=== PATIENT | male | born 1950 | race Caucasian/White ===

== ENCOUNTER 2017-07-28 14:30 | Inpatient (IN) | payer MEDICARE, BC ==
[~2017-07-28] VITALS: Ht 172.7 cm; Wt 81.6 kg
[2017-07-28 16:00] VITALS: BP 104/73
[2017-07-28] MEDS ORDERED: ONDANSETRON HCL 4MG/2ML VIAL IV PRN (16:15)
[2017-07-28] MEDS ORDERED: CLONIDINE 0.1MG TABLET PO PRN (16:15)
[2017-07-28 18:05] VITALS: BP 104/73
[2017-07-28] MEDS ORDERED: BUPR300T54 PO (19:04)
[2017-07-28] MEDS ORDERED: DOCU-150 PO (19:04)
[2017-07-28] MEDS ORDERED: PRAV80TA21 PO (19:04)
[2017-07-28] MEDS ORDERED: LISINOPRIL PO (19:04)
[2017-07-28] MEDS ORDERED: SERT-112 PO (19:04)
[2017-07-28] MEDS ORDERED: HYDR25TA PO (19:04)
[2017-07-28] MEDS ORDERED: MEMA10TA2 PO (19:04)
[2017-07-28] MEDS ORDERED: NON FORMULARY PATIENT HOME MED EA XX SCH ×4 (19:15→20:15)
[2017-07-28 20:00] VITALS: BP 120/80
[2017-07-28] MEDS ORDERED: ATORVASTATIN CALCIUM 10MG TABLET PO SCH (21:00)
[2017-07-28] MEDS: MEMANTINE HCL 10MG TABLET PO SCH (22:41)
[2017-07-28] MEDS: ATORVASTATIN CALCIUM 20MG TABLET PO SCH (22:41)
[2017-07-28] MEDS: SULFAMETHOXAZOLE/TRIMETHOPRIM 800/160MG TABLET PO SCH (22:41)
[2017-07-28] MEDS: SERTRALINE HCL 100MG TABLET PO SCH (22:41)
[2017-07-28] MEDS: ACETAMINOPHEN 325MG TABLET PO PRN (22:42)
[2017-07-29 08:00] VITALS: BP 134/89
[2017-07-29] MEDS: HYDROCHLOROTHIAZIDE 25MG TABLET PO SCH (09:39)
[2017-07-29] MEDS: SULFAMETHOXAZOLE/TRIMETHOPRIM 800/160MG TABLET PO SCH ×2 (09:39→22:54)
[2017-07-29] MEDS: SERTRALINE HCL 100MG TABLET PO SCH ×2 (09:39→18:28)
[2017-07-29] MEDS: DOCUSATE SODIUM 100MG CAPSULE PO SCH (09:39)
[2017-07-29] MEDS: MEMANTINE HCL 10MG TABLET PO SCH ×2 (09:39→22:54)
[2017-07-29] MEDS: LISINOPRIL 10MG TABLET PO SCH (09:40)
[2017-07-29 09:49] LABS: BASOPHILS % 0.6 % (0.0-2.0); EOSINOPHILS % 1.7 % (0.0-5.0); HEMATOCRIT. 53.4 % (42.0-52.0); HEMOGLOBIN. 17.3 g/dL (14.0-18.0); LYMPHOCYTES % 14.8 % (20.0-50.0); MEAN CORPUSCULAR HEMOGLOBIN 28.6 pg (28.0-32.0); MEAN CORPUSCULAR VOLUME 88.2 fL (80.0-94.0); MEAN PLATELET VOLUME 9.3 fl (7.4-10.4); MONOCYTES % 7.2 % (2.0-8.0); NEUTROPHILS % 75.7 % (40.0-76.0); PLATELET 148 x1000/uL (130-400); RED BLOOD CELL COUNT 6.06 mill/uL (4.7-6.1); RED CELL DISTRIBUTION WIDTH 17.1 % (11.6-14.6)
[2017-07-29 09:55] LABS: CARBON DIOXIDE 34 mEq/L (21-32); CHLORIDE 101 mEq/L (98-107)
[2017-07-29] MEDS: BUPROPION HCL 150MG TABLET XL 24HR PO SCH (11:49)
[2017-07-29] MEDS: ACETAMINOPHEN 325MG TABLET PO PRN (14:32)
[2017-07-29] MEDS ORDERED: POTASSIUM CHLORIDE 20MEQ TABLET SR PO NR (17:20)
[2017-07-29] MEDS: ATORVASTATIN CALCIUM 20MG TABLET PO SCH (22:53)
[2017-07-29] MEDS: POLYETHYLENE GLYCOL 3350 (17GM) 1 DOSE PACK PO SCH (22:53)
[2017-07-30 08:00] VITALS: BP 133/94
[2017-07-30 08:15] LABS: BASOPHILS % 0.4 % (0.0-2.0); EOSINOPHILS % 2.2 % (0.0-5.0); HEMATOCRIT. 52.7 % (42.0-52.0); HEMOGLOBIN. 17.3 g/dL (14.0-18.0); LYMPHOCYTES % 12.6 % (20.0-50.0); MEAN CORPUSCULAR HEMOGLOBIN 28.7 pg (28.0-32.0); MEAN CORPUSCULAR VOLUME 87.6 fL (80.0-94.0); MEAN PLATELET VOLUME 9.1 fl (7.4-10.4); MONOCYTES % 7.6 % (2.0-8.0); NEUTROPHILS % 77.2 % (40.0-76.0); PLATELET 146 x1000/uL (130-400); RED BLOOD CELL COUNT 6.01 mill/uL (4.7-6.1); RED CELL DISTRIBUTION WIDTH 17.1 % (11.6-14.6)
[2017-07-30 08:53] LABS: CARBON DIOXIDE 32 mEq/L (21-32); CHLORIDE 102 mEq/L (98-107); HDL CHOLESTEROL 39 mg/dL (40-59); LDL CHOLESTEROL 101 mg/dL (5-100); PHOSPHORUS 3.1 mg/dL (2.5-4.9); TOTAL IRON BINDING CAPACITY 298 ug/dL (250-450)
[2017-07-30 08:56] LABS: PROSTRATE SPECIFIC AG TOTAL 0.19 ng/mL (0.0-4.0)
[2017-07-30] MEDS: DOCUSATE SODIUM 100MG CAPSULE PO SCH ×2 (08:59→18:01)
[2017-07-30] MEDS: SERTRALINE HCL 100MG TABLET PO SCH ×2 (09:01→18:01)
[2017-07-30] MEDS: LISINOPRIL 10MG TABLET PO SCH (09:01)
[2017-07-30] MEDS: SULFAMETHOXAZOLE/TRIMETHOPRIM 800/160MG TABLET PO SCH ×2 (09:02→21:25)
[2017-07-30] MEDS: MEMANTINE HCL 10MG TABLET PO SCH ×2 (09:02→21:25)
[2017-07-30] MEDS: HYDROCHLOROTHIAZIDE 25MG TABLET PO SCH (09:02)
[2017-07-30] MEDS: BUPROPION HCL 150MG TABLET XL 24HR PO SCH (09:03)
[2017-07-30 10:02] LABS: FOLIC ACID (FOLATE) SERUM 6.5 ng/mL (>5.38)
[2017-07-30] MEDS: ENOXAPARIN 40MG/0.4ML SYR SUBCUT SCH (11:44)
[2017-07-30] MEDS ORDERED: NA PHOS,M-B/NA PHOS,DI-BA ENEMA 118ML PR NR (16:45)
[2017-07-30] MEDS ORDERED: NA PHOS,M-B/NA PHOS,DI-BA ENEMA 118ML PR PRN (18:00)
[2017-07-30] MEDS: LACTULOSE 20G/30ML UDC PO SCH ×2 (18:01→21:00)
[2017-07-30 20:00] VITALS: BP 110/75
[2017-07-30] MEDS ORDERED: POLYETHYLENE GLYCOL 3350 (17GM) 1 DOSE PACK PO SCH (21:00)
[2017-07-30] MEDS: POLYETHYLENE GLYCOL 3350 (17GM) 1 DOSE PACK PO SCH (21:00)
[2017-07-30] MEDS: ATORVASTATIN CALCIUM 20MG TABLET PO SCH (21:25)
[2017-07-30] MEDS: ACETAMINOPHEN 325MG TABLET PO PRN (21:25)
[2017-07-31] MEDS: LACTULOSE 20G/30ML UDC PO SCH ×4 (01:00→12:13)
[2017-07-31 08:00] VITALS: BP 121/82
[2017-07-31] MEDS: SERTRALINE HCL 100MG TABLET PO SCH ×2 (08:37→16:46)
[2017-07-31] MEDS: LISINOPRIL 10MG TABLET PO SCH (08:37)
[2017-07-31] MEDS: BUPROPION HCL 150MG TABLET XL 24HR PO SCH (08:37)
[2017-07-31] MEDS: CYANOCOBALAMIN 1000MCG TABLET PO SCH (08:38)
[2017-07-31] MEDS: DOCUSATE SODIUM 100MG CAPSULE PO SCH ×3 (08:38→16:46)
[2017-07-31] MEDS: HYDROCHLOROTHIAZIDE 25MG TABLET PO SCH (08:38)
[2017-07-31] MEDS: SULFAMETHOXAZOLE/TRIMETHOPRIM 800/160MG TABLET PO SCH ×2 (08:38→20:59)
[2017-07-31] MEDS: MEMANTINE HCL 10MG TABLET PO SCH ×2 (08:38→20:59)
[2017-07-31] MEDS ORDERED: BISACODYL 10MG SUPP PR NR (12:00)
[2017-07-31] MEDS: ENOXAPARIN 40MG/0.4ML SYR SUBCUT SCH (12:14)
[2017-07-31] MEDS ORDERED: DOCUSATE SODIUM 100MG CAPSULE PO SCH (17:00)
[2017-07-31] MEDS: POLYETHYLENE GLYCOL 3350 (17GM) 1 DOSE PACK PO SCH (20:59)
[2017-07-31] MEDS: ATORVASTATIN CALCIUM 20MG TABLET PO SCH (20:59)
[2017-07-31 21:06] VITALS: BP 112/82
[2017-08-01] MEDS: ACETAMINOPHEN 325MG TABLET PO PRN (03:20)
[2017-08-01 08:00] VITALS: BP 123/82
[2017-08-01] MEDS: SULFAMETHOXAZOLE/TRIMETHOPRIM 800/160MG TABLET PO SCH ×2 (08:55→21:25)
[2017-08-01] MEDS: DOCUSATE SODIUM 100MG CAPSULE PO SCH ×2 (08:55→16:16)
[2017-08-01] MEDS: HYDROCHLOROTHIAZIDE 25MG TABLET PO SCH (08:55)
[2017-08-01] MEDS: SERTRALINE HCL 100MG TABLET PO SCH ×2 (08:55→16:16)
[2017-08-01] MEDS: BUPROPION HCL 150MG TABLET XL 24HR PO SCH (08:56)
[2017-08-01] MEDS: MEMANTINE HCL 10MG TABLET PO SCH ×2 (08:56→21:25)
[2017-08-01] MEDS: CYANOCOBALAMIN 1000MCG TABLET PO SCH (08:56)
[2017-08-01] MEDS: LISINOPRIL 10MG TABLET PO SCH (08:56)
[2017-08-01] MEDS ORDERED: ONDANSETRON HCL 4MG TABLET PO PRN (09:45)
[2017-08-01] MEDS: ENOXAPARIN 40MG/0.4ML SYR SUBCUT SCH (13:22)
[2017-08-01 13:46] LABS: CREATINE KINASE 142 IU/L (39-308); CREATINE KINASE MB FRACTION 3.9 ng/mL (0.5-3.6); TROPONIN I < 0.02 ng/mL (0.00-0.04)
[2017-08-01 20:00] VITALS: BP 112/70
[2017-08-01] MEDS: ATORVASTATIN CALCIUM 20MG TABLET PO SCH (21:25)
[2017-08-01] MEDS: POLYETHYLENE GLYCOL 3350 (17GM) 1 DOSE PACK PO SCH (21:29)
[2017-08-02 08:00] VITALS: BP 111/84
[2017-08-02] MEDS: DOCUSATE SODIUM 100MG CAPSULE PO SCH ×2 (08:59→16:30)
[2017-08-02] MEDS: SERTRALINE HCL 100MG TABLET PO SCH ×2 (09:01→16:30)
[2017-08-02] MEDS: HYDROCHLOROTHIAZIDE 25MG TABLET PO SCH (09:01)
[2017-08-02] MEDS: BUPROPION HCL 150MG TABLET XL 24HR PO SCH (09:01)
[2017-08-02] MEDS: MEMANTINE HCL 10MG TABLET PO SCH ×2 (09:01→23:15)
[2017-08-02] MEDS: SULFAMETHOXAZOLE/TRIMETHOPRIM 800/160MG TABLET PO SCH ×2 (09:01→23:15)
[2017-08-02] MEDS: LISINOPRIL 10MG TABLET PO SCH (09:02)
[2017-08-02] MEDS: CYANOCOBALAMIN 1000MCG TABLET PO SCH (09:02)
[2017-08-02 09:32] LABS: BASOPHILS % 0.5 % (0.0-2.0); EOSINOPHILS % 2.5 % (0.0-5.0); HEMATOCRIT. 53.8 % (42.0-52.0); HEMOGLOBIN. 17.5 g/dL (14.0-18.0); LYMPHOCYTES % 12.4 % (20.0-50.0); MEAN CORPUSCULAR HEMOGLOBIN 28.6 pg (28.0-32.0); MEAN CORPUSCULAR VOLUME 88.2 fL (80.0-94.0); MEAN PLATELET VOLUME 9.1 fl (7.4-10.4); MONOCYTES % 7.3 % (2.0-8.0); NEUTROPHILS % 77.3 % (40.0-76.0); PLATELET 167 x1000/uL (130-400); RED CELL DISTRIBUTION WIDTH 17.3 % (11.6-14.6)
[2017-08-02 10:04] LABS: CARBON DIOXIDE 27 mEq/L (21-32); CHLORIDE 102 mEq/L (98-107)
[2017-08-02] MEDS: ENOXAPARIN 40MG/0.4ML SYR SUBCUT SCH (12:00)
[2017-08-02] MEDS ORDERED: GUAIFENESIN/CODEINE 200-20MG/10ML UDC PO NR (13:00)
[2017-08-02 13:12] LABS: 25-HYDROXY VITAMIN D3 15 ng/mL (.)
[2017-08-02] MEDS: ERGOCALCIFEROL 50000UNITS CAPSULE PO SCH (16:30)
[2017-08-02] MEDS ORDERED: NA PHOS,M-B/NA PHOS,DI-BA ENEMA 118ML PR NR ×2 (16:30→22:00)
[2017-08-02] MEDS: LACTULOSE 20G/30ML UDC PO SCH ×2 (16:30→23:15)
[2017-08-02] MEDS ORDERED: IPRATROPIUM/ALBUTEROL 0.5-3(2.5)MG/3ML NEB HHN PRN (17:00)
[2017-08-02 17:17] LABS: CLARITY URINE CLEAR (CLEAR); COLOR URINE YELLOW (YELLOW); KETONES URINE NEGATIVE (NEGATIVE); LEUKOCYTE ESTERASE URINE NEGATIVE (NEGATIVE); NITRITE URINE NEGATIVE (NEGATIVE); OCCULT BLOOD URINE TRACE (NEGATIVE); PROTEIN URINE NEGATIVE (NEGATIVE); SPECIFIC GRAVITY URINE 1.018 (1.005-1.030); UROBILINOGEN URINE 0.2 E.U./dL (0.2-1.0)
[2017-08-02 20:00] VITALS: BP 140/90
[2017-08-02] MEDS: BUDESONIDE 0.5MG/2ML NEB HHN SCH (21:40)
[2017-08-02] MEDS: IPRATROPIUM/ALBUTEROL 0.5-3(2.5)MG/3ML NEB HHN SCH (21:40)
[2017-08-02] MEDS: POLYETHYLENE GLYCOL 3350 (17GM) 1 DOSE PACK PO SCH (23:15)
[2017-08-02] MEDS: ATORVASTATIN CALCIUM 20MG TABLET PO SCH (23:15)
[2017-08-02 23:57] LABS: C REACTIVE PROTEIN QUANT 8.5 mg/L (0.0-3.0)
[2017-08-03] MEDS: IPRATROPIUM/ALBUTEROL 0.5-3(2.5)MG/3ML NEB HHN SCH ×4 (02:05→20:05)
[2017-08-03] MEDS: BUDESONIDE 0.5MG/2ML NEB HHN SCH ×2 (07:54→20:06)
[2017-08-03 08:42] VITALS: BP 116/85
[2017-08-03] MEDS: AMLODIPINE 2.5MG TABLET PO SCH (08:53)
[2017-08-03] MEDS: MEMANTINE HCL 10MG TABLET PO SCH ×2 (08:54→20:44)
[2017-08-03] MEDS: CYANOCOBALAMIN 1000MCG TABLET PO SCH (08:54)
[2017-08-03] MEDS: HYDROCHLOROTHIAZIDE 25MG TABLET PO SCH (08:54)
[2017-08-03] MEDS: SULFAMETHOXAZOLE/TRIMETHOPRIM 800/160MG TABLET PO SCH (08:54)
[2017-08-03] MEDS: SERTRALINE HCL 100MG TABLET PO SCH ×2 (08:54→16:56)
[2017-08-03] MEDS: DOCUSATE SODIUM 100MG CAPSULE PO SCH ×2 (08:55→16:56)
[2017-08-03] MEDS: BUPROPION HCL 150MG TABLET XL 24HR PO SCH (08:55)
[2017-08-03] MEDS: LACTULOSE 20G/30ML UDC PO SCH (08:55)
[2017-08-03] MEDS: ENOXAPARIN 40MG/0.4ML SYR SUBCUT SCH (12:06)
[2017-08-03] MEDS ORDERED: SODIUM CHLORIDE 10% FOR INH 15ML VIAL NEB INH SCH (12:15)
[2017-08-03] MEDS ORDERED: LEVOFLOXACIN 500MG TABLET PO SCH (13:00)
[2017-08-03] MEDS ORDERED: ACETYLCYSTEINE 100MG/ML 10% VIAL 4ML INH SCH (13:30)
[2017-08-03] MEDS ORDERED: ACETYLCYSTEINE 200MG/ML 20% VIAL 4ML PO SCH (18:00)
[2017-08-03 20:00] VITALS: BP 127/80
[2017-08-03] MEDS: ACETYLCYSTEINE 200MG/ML 20% VIAL 4ML INH SCH (20:14)
[2017-08-03] MEDS: POLYETHYLENE GLYCOL 3350 (17GM) 1 DOSE PACK PO SCH (20:44)
[2017-08-03] MEDS: ATORVASTATIN CALCIUM 20MG TABLET PO SCH (20:44)
[2017-08-04] MEDS: ACETYLCYSTEINE 200MG/ML 20% VIAL 4ML INH SCH ×3 (02:10→21:05)
[2017-08-04] MEDS: IPRATROPIUM/ALBUTEROL 0.5-3(2.5)MG/3ML NEB HHN SCH ×4 (02:10→21:05)
[2017-08-04] MEDS: ACETAMINOPHEN 325MG TABLET PO PRN ×2 (03:03→20:39)
[2017-08-04 07:28] LABS: BASOPHILS % 0.4 % (0.0-2.0); EOSINOPHILS % 1.5 % (0.0-5.0); HEMATOCRIT. 52.3 % (42.0-52.0); HEMOGLOBIN. 17.5 g/dL (14.0-18.0); LYMPHOCYTES % 12.4 % (20.0-50.0); MEAN CORPUSCULAR HEMOGLOBIN 29.5 pg (28.0-32.0); MEAN CORPUSCULAR VOLUME 87.9 fL (80.0-94.0); MEAN PLATELET VOLUME 9.3 fl (7.4-10.4); MONOCYTES % 10.1 % (2.0-8.0); NEUTROPHILS % 75.6 % (40.0-76.0); PLATELET 163 x1000/uL (130-400); RED BLOOD CELL COUNT 5.95 mill/uL (4.7-6.1)
[2017-08-04 07:58] LABS: CARBON DIOXIDE 28 mEq/L (21-32); CHLORIDE 99 mEq/L (98-107)
[2017-08-04 08:00] VITALS: BP 132/88
[2017-08-04] MEDS: DOCUSATE SODIUM 100MG CAPSULE PO SCH ×2 (08:57→17:18)
[2017-08-04] MEDS: HYDROCHLOROTHIAZIDE 25MG TABLET PO SCH (08:57)
[2017-08-04] MEDS: SERTRALINE HCL 100MG TABLET PO SCH ×2 (08:57→17:18)
[2017-08-04] MEDS: AMLODIPINE 2.5MG TABLET PO SCH (08:57)
[2017-08-04] MEDS: MEMANTINE HCL 10MG TABLET PO SCH ×2 (08:57→20:39)
[2017-08-04] MEDS: CYANOCOBALAMIN 1000MCG TABLET PO SCH (08:57)
[2017-08-04] MEDS: BUPROPION HCL 150MG TABLET XL 24HR PO SCH (08:57)
[2017-08-04] MEDS: ENOXAPARIN 40MG/0.4ML SYR SUBCUT SCH (12:12)
[2017-08-04 17:12] LABS: ANTI-NUCLEAR ANTIBODIES DIRECT Negative (Negative)
[2017-08-04 20:00] VITALS: BP 120/85
[2017-08-04] MEDS: POLYETHYLENE GLYCOL 3350 (17GM) 1 DOSE PACK PO SCH (20:39)
[2017-08-04] MEDS: ATORVASTATIN CALCIUM 20MG TABLET PO SCH (20:39)
[2017-08-04] MEDS: BUDESONIDE 0.5MG/2ML NEB HHN SCH (21:05)
[2017-08-05] MEDS: ACETAMINOPHEN 325MG TABLET PO PRN (03:03)
[2017-08-05] MEDS: IPRATROPIUM/ALBUTEROL 0.5-3(2.5)MG/3ML NEB HHN SCH ×4 (03:56→21:24)
[2017-08-05] MEDS: BUDESONIDE 0.5MG/2ML NEB HHN SCH ×3 (07:27→21:40)
[2017-08-05] MEDS: ACETYLCYSTEINE 200MG/ML 20% VIAL 4ML INH SCH ×3 (07:29→21:29)
[2017-08-05 08:00] VITALS: BP 137/94
[2017-08-05] MEDS: LEVOFLOXACIN 250MG TABLET PO SCH (08:18)
[2017-08-05] MEDS: BUPROPION HCL 150MG TABLET XL 24HR PO SCH (08:18)
[2017-08-05] MEDS: CYANOCOBALAMIN 1000MCG TABLET PO SCH (08:18)
[2017-08-05] MEDS: SERTRALINE HCL 100MG TABLET PO SCH ×2 (08:18→16:16)
[2017-08-05] MEDS: AMLODIPINE 2.5MG TABLET PO SCH (08:19)
[2017-08-05] MEDS: HYDROCHLOROTHIAZIDE 25MG TABLET PO SCH (08:19)
[2017-08-05] MEDS: MEMANTINE HCL 10MG TABLET PO SCH ×2 (08:19→21:20)
[2017-08-05] MEDS: DOCUSATE SODIUM 100MG CAPSULE PO SCH ×2 (08:19→16:16)
[2017-08-05] MEDS: GUAIFENESIN 600MG ER TABLET PO SCH ×2 (11:32→21:20)
[2017-08-05] MEDS: ENOXAPARIN 40MG/0.4ML SYR SUBCUT SCH (11:32)
[2017-08-05 13:12] LABS: ANGIOTENSION CONVERTING ENZYME < 15 U/L (14-82); ANTI-MYELOPEROXIDASE AB < 9.0 U/mL (0.0-9.0); ANTI-PROTEINASE 3 ABS < 3.5 U/mL (0.0-3.5)
[2017-08-05 14:23] LABS: ATYPICAL P-ANCA <1:20 titer (Neg:<1:20); CYTOPLASMIC C-ANCA <1:20 titer (Neg:<1:20); PERINUCLEAR P-ANCA <1:20 titer (Neg:<1:20)
[2017-08-05 20:00] VITALS: BP 105/73
[2017-08-05] MEDS: POLYETHYLENE GLYCOL 3350 (17GM) 1 DOSE PACK PO SCH (21:00)
[2017-08-05] MEDS: ATORVASTATIN CALCIUM 20MG TABLET PO SCH (21:20)
[2017-08-06] MEDS: ACETYLCYSTEINE 200MG/ML 20% VIAL 4ML INH SCH ×4 (02:40→21:31)
[2017-08-06] MEDS: IPRATROPIUM/ALBUTEROL 0.5-3(2.5)MG/3ML NEB HHN SCH ×4 (02:42→21:31)
[2017-08-06] MEDS: BUDESONIDE 0.5MG/2ML NEB HHN SCH ×2 (07:17→21:31)
[2017-08-06 08:00] VITALS: BP 132/91
[2017-08-06] MEDS: DOCUSATE SODIUM 100MG CAPSULE PO SCH ×2 (08:47→17:50)
[2017-08-06] MEDS: SERTRALINE HCL 100MG TABLET PO SCH ×2 (08:47→17:50)
[2017-08-06] MEDS: MEMANTINE HCL 10MG TABLET PO SCH ×2 (08:47→21:11)
[2017-08-06] MEDS: GUAIFENESIN 600MG ER TABLET PO SCH ×2 (08:47→21:11)
[2017-08-06] MEDS: HYDROCHLOROTHIAZIDE 25MG TABLET PO SCH (08:47)
[2017-08-06] MEDS: BUPROPION HCL 150MG TABLET XL 24HR PO SCH (08:48)
[2017-08-06] MEDS: AMLODIPINE 2.5MG TABLET PO SCH (08:48)
[2017-08-06] MEDS: CYANOCOBALAMIN 1000MCG TABLET PO SCH (08:48)
[2017-08-06] MEDS: PREDNISONE 20MG TABLET PO SCH ×2 (12:57→17:50)
[2017-08-06] MEDS: ENOXAPARIN 40MG/0.4ML SYR SUBCUT SCH (12:58)
[2017-08-06 20:18] VITALS: BP 138/86
[2017-08-06] MEDS: POLYETHYLENE GLYCOL 3350 (17GM) 1 DOSE PACK PO SCH (21:00)
[2017-08-06] MEDS: ATORVASTATIN CALCIUM 20MG TABLET PO SCH (21:11)
[2017-08-06] MEDS: GUAIFENESIN/CODEINE 200-20MG/10ML UDC PO PRN (21:22)
[2017-08-07] MEDS: ACETYLCYSTEINE 200MG/ML 20% VIAL 4ML INH SCH (01:16)
[2017-08-07] MEDS: IPRATROPIUM/ALBUTEROL 0.5-3(2.5)MG/3ML NEB HHN SCH ×4 (01:17→20:32)
[2017-08-07] MEDS ORDERED: NA PHOS,M-B/NA PHOS,DI-BA ENEMA 118ML PR NR (07:45)
[2017-08-07 07:56] LABS: BASOPHILS % 0.1 % (0.0-2.0); EOSINOPHILS % 0.1 % (0.0-5.0); HEMATOCRIT. 51.8 % (42.0-52.0); HEMOGLOBIN. 17.5 g/dL (14.0-18.0); LYMPHOCYTES % 11.3 % (20.0-50.0); MEAN CORPUSCULAR HEMOGLOBIN 29.4 pg (28.0-32.0); MEAN CORPUSCULAR VOLUME 86.9 fL (80.0-94.0); MEAN PLATELET VOLUME 9.2 fl (7.4-10.4); NEUTROPHILS % 81.5 % (40.0-76.0); PLATELET 185 x1000/uL (130-400); RED BLOOD CELL COUNT 5.96 mill/uL (4.7-6.1)
[2017-08-07 08:00] VITALS: BP 121/84
[2017-08-07] MEDS: BUDESONIDE 0.5MG/2ML NEB HHN SCH ×2 (08:05→20:32)
[2017-08-07 08:17] LABS: CARBON DIOXIDE 29 mEq/L (21-32); CHLORIDE 100 mEq/L (98-107)
[2017-08-07] MEDS: SERTRALINE HCL 100MG TABLET PO SCH ×2 (08:32→17:30)
[2017-08-07] MEDS: CYANOCOBALAMIN 1000MCG TABLET PO SCH (08:32)
[2017-08-07] MEDS: LEVOFLOXACIN 250MG TABLET PO SCH (08:32)
[2017-08-07] MEDS: GUAIFENESIN 600MG ER TABLET PO SCH ×2 (08:33→21:33)
[2017-08-07] MEDS: BUPROPION HCL 150MG TABLET XL 24HR PO SCH (08:33)
[2017-08-07] MEDS: AMLODIPINE 2.5MG TABLET PO SCH (08:33)
[2017-08-07] MEDS: MEMANTINE HCL 10MG TABLET PO SCH ×2 (08:33→21:33)
[2017-08-07] MEDS: HYDROCHLOROTHIAZIDE 25MG TABLET PO SCH (08:33)
[2017-08-07] MEDS: PREDNISONE 20MG TABLET PO SCH ×2 (08:34→17:30)
[2017-08-07] MEDS: LACTULOSE 20G/30ML UDC PO SCH ×3 (08:34→17:29)
[2017-08-07] MEDS: DOCUSATE SODIUM 100MG CAPSULE PO SCH ×2 (08:34→17:30)
[2017-08-07] MEDS: BISACODYL 10MG SUPP PR SCH (08:46)
[2017-08-07] MEDS ORDERED: POTASSIUM CHLORIDE 20MEQ/PACKET PO NR (09:30)
[2017-08-07 10:45] LABS: PHOSPHORUS 3.2 mg/dL (2.5-4.9)
[2017-08-07] MEDS: ENOXAPARIN 40MG/0.4ML SYR SUBCUT SCH (13:10)
[2017-08-07 20:00] VITALS: BP 132/92
[2017-08-07] MEDS: POLYETHYLENE GLYCOL 3350 (17GM) 1 DOSE PACK PO SCH (21:00)
[2017-08-07] MEDS: ATORVASTATIN CALCIUM 20MG TABLET PO SCH (21:33)
[2017-08-08] MEDS: ACETYLCYSTEINE 200MG/ML 20% VIAL 4ML INH SCH ×4 (02:19→21:07)
[2017-08-08] MEDS: IPRATROPIUM/ALBUTEROL 0.5-3(2.5)MG/3ML NEB HHN SCH ×4 (02:19→21:07)
[2017-08-08] MEDS: GUAIFENESIN/CODEINE 200-20MG/10ML UDC PO PRN (05:56)
[2017-08-08 07:29] LABS: HEMATOCRIT. 52.7 % (42.0-52.0); HEMOGLOBIN. 17.4 g/dL (14.0-18.0); MEAN CORPUSCULAR HEMOGLOBIN 29.4 pg (28.0-32.0); MEAN CORPUSCULAR VOLUME 88.8 fL (80.0-94.0); MEAN PLATELET VOLUME 9.4 fl (7.4-10.4); PLATELET 200 x1000/uL (130-400); RED BLOOD CELL COUNT 5.93 mill/uL (4.7-6.1); RED CELL DISTRIBUTION WIDTH 17.6 % (11.6-14.6)
[2017-08-08 07:56] LABS: CARBON DIOXIDE 29 mEq/L (21-32); CHLORIDE 102 mEq/L (98-107)
[2017-08-08 08:00] VITALS: BP 136/84
[2017-08-08] MEDS: BUDESONIDE 0.5MG/2ML NEB HHN SCH ×2 (08:42→21:07)
[2017-08-08] MEDS ORDERED: POTASSIUM CHLORIDE 20MEQ TABLET SR PO NR (09:15)
[2017-08-08] MEDS: CYANOCOBALAMIN 1000MCG TABLET PO SCH (09:17)
[2017-08-08] MEDS: BUPROPION HCL 150MG TABLET XL 24HR PO SCH (09:17)
[2017-08-08] MEDS: SERTRALINE HCL 100MG TABLET PO SCH ×2 (09:17→16:35)
[2017-08-08] MEDS: BISACODYL 10MG SUPP PR SCH (09:17)
[2017-08-08] MEDS: PREDNISONE 20MG TABLET PO SCH (09:18)
[2017-08-08] MEDS: GUAIFENESIN 600MG ER TABLET PO SCH ×2 (09:18→21:08)
[2017-08-08] MEDS: HYDROCHLOROTHIAZIDE 25MG TABLET PO SCH (09:18)
[2017-08-08] MEDS: AMLODIPINE 2.5MG TABLET PO SCH (09:18)
[2017-08-08] MEDS: MEMANTINE HCL 10MG TABLET PO SCH ×2 (09:18→21:08)
[2017-08-08] MEDS: DOCUSATE SODIUM 100MG CAPSULE PO SCH ×2 (09:18→16:35)
[2017-08-08] MEDS ORDERED: LEVOFLOXACIN 500MG TABLET PO SCH (11:00)
[2017-08-08] MEDS: ACETAMINOPHEN 325MG TABLET PO PRN ×3 (11:09→23:47)
[2017-08-08] MEDS: ENOXAPARIN 40MG/0.4ML SYR SUBCUT SCH (11:10)
[2017-08-08 13:25] LABS: PLATELET ESTIMATE NORMAL
[2017-08-08 20:00] VITALS: BP 114/75
[2017-08-08] MEDS: ATORVASTATIN CALCIUM 20MG TABLET PO SCH (21:07)
[2017-08-08] MEDS: POLYETHYLENE GLYCOL 3350 (17GM) 1 DOSE PACK PO SCH (21:07)
[2017-08-09] MEDS: IPRATROPIUM/ALBUTEROL 0.5-3(2.5)MG/3ML NEB HHN SCH ×4 (01:14→20:05)
[2017-08-09] MEDS: BUDESONIDE 0.5MG/2ML NEB HHN SCH ×2 (07:16→20:05)
[2017-08-09 07:28] LABS: BASOPHILS % 0.1 % (0.0-2.0); EOSINOPHILS % 0.5 % (0.0-5.0); HEMATOCRIT. 51.9 % (42.0-52.0); HEMOGLOBIN. 17.1 g/dL (14.0-18.0); LYMPHOCYTES % 17.8 % (20.0-50.0); MEAN CORPUSCULAR HEMOGLOBIN 29.2 pg (28.0-32.0); MEAN CORPUSCULAR VOLUME 88.4 fL (80.0-94.0); MONOCYTES % 8.3 % (2.0-8.0); NEUTROPHILS % 73.3 % (40.0-76.0); PLATELET 179 x1000/uL (130-400); RED BLOOD CELL COUNT 5.87 mill/uL (4.7-6.1); RED CELL DISTRIBUTION WIDTH 17.5 % (11.6-14.6)
[2017-08-09 08:00] VITALS: BP 144/86
[2017-08-09] MEDS: CYANOCOBALAMIN 1000MCG TABLET PO SCH (08:24)
[2017-08-09] MEDS: ERGOCALCIFEROL 50000UNITS CAPSULE PO SCH (08:24)
[2017-08-09] MEDS: HYDROCHLOROTHIAZIDE 25MG TABLET PO SCH (08:24)
[2017-08-09] MEDS: DOCUSATE SODIUM 100MG CAPSULE PO SCH ×2 (08:24→16:42)
[2017-08-09] MEDS: PREDNISONE 20MG TABLET PO SCH (08:24)
[2017-08-09] MEDS: GUAIFENESIN 600MG ER TABLET PO SCH ×2 (08:24→21:53)
[2017-08-09] MEDS: BUPROPION HCL 150MG TABLET XL 24HR PO SCH (08:24)
[2017-08-09] MEDS: MEMANTINE HCL 10MG TABLET PO SCH ×2 (08:24→21:53)
[2017-08-09] MEDS: BISACODYL 10MG SUPP PR SCH (08:25)
[2017-08-09] MEDS: SERTRALINE HCL 100MG TABLET PO SCH ×2 (08:25→16:42)
[2017-08-09] MEDS: AMLODIPINE 2.5MG TABLET PO SCH (08:25)
[2017-08-09 08:33] LABS: CARBON DIOXIDE 29 mEq/L (21-32); CHLORIDE 102 mEq/L (98-107)
[2017-08-09 09:44] LABS: PHOSPHORUS 2.8 mg/dL (2.5-4.9)
[2017-08-09] MEDS ORDERED: POTASSIUM CHLORIDE INJ 40 MEQ in DEXT 5% WATER 500 ML IV NR (11:00)
[2017-08-09] MEDS: CEPHALEXIN 500MG CAPSULE PO SCH ×2 (11:48→21:53)
[2017-08-09] MEDS: ENOXAPARIN 40MG/0.4ML SYR SUBCUT SCH (11:48)
[2017-08-09] MEDS ORDERED: POTASSIUM CHLORIDE INJ 20 MEQ in DEXT 5% WATER 250 ML IV NR (16:00)
[2017-08-09] MEDS: ACETAMINOPHEN 325MG TABLET PO PRN (18:19)
[2017-08-09 20:00] VITALS: BP 123/83
[2017-08-09] MEDS: POLYETHYLENE GLYCOL 3350 (17GM) 1 DOSE PACK PO SCH (21:52)
[2017-08-09] MEDS: ATORVASTATIN CALCIUM 20MG TABLET PO SCH (21:53)
[2017-08-10] MEDS: IPRATROPIUM/ALBUTEROL 0.5-3(2.5)MG/3ML NEB HHN SCH ×4 (01:15→21:43)
[2017-08-10] MEDS ORDERED: POTASSIUM CHLORIDE 20MEQ TABLET SR PO SCH (01:30)
[2017-08-10] MEDS: CEPHALEXIN 500MG CAPSULE PO SCH ×4 (01:55→17:09)
[2017-08-10] MEDS: ACETAMINOPHEN 325MG TABLET PO PRN ×2 (01:56→11:01)
[2017-08-10 07:00] VITALS: BP 135/85
[2017-08-10] MEDS: BUDESONIDE 0.5MG/2ML NEB HHN SCH ×2 (07:11→21:43)
[2017-08-10 07:15] LABS: BASOPHILS % 0.1 % (0.0-2.0); HEMOGLOBIN. 17.4 g/dL (14.0-18.0); LYMPHOCYTES % 20.5 % (20.0-50.0); MEAN CORPUSCULAR HEMOGLOBIN 29.5 pg (28.0-32.0); MEAN CORPUSCULAR VOLUME 88.2 fL (80.0-94.0); MEAN PLATELET VOLUME 9.1 fl (7.4-10.4); MONOCYTES % 7.7 % (2.0-8.0); NEUTROPHILS % 70.7 % (40.0-76.0); PLATELET 184 x1000/uL (130-400); RED CELL DISTRIBUTION WIDTH 17.3 % (11.6-14.6)
[2017-08-10 08:14] LABS: CARBON DIOXIDE 29 mEq/L (21-32); CHLORIDE 102 mEq/L (98-107)
[2017-08-10] MEDS: CYANOCOBALAMIN 1000MCG TABLET PO SCH (08:29)
[2017-08-10] MEDS: BUPROPION HCL 150MG TABLET XL 24HR PO SCH (08:29)
[2017-08-10] MEDS: GUAIFENESIN 600MG ER TABLET PO SCH ×2 (08:29→22:00)
[2017-08-10] MEDS: PREDNISONE 20MG TABLET PO SCH (08:29)
[2017-08-10] MEDS: SERTRALINE HCL 100MG TABLET PO SCH ×2 (08:30→17:09)
[2017-08-10] MEDS: BISACODYL 10MG SUPP PR SCH (08:30)
[2017-08-10] MEDS: AMLODIPINE 2.5MG TABLET PO SCH (08:30)
[2017-08-10] MEDS: DOCUSATE SODIUM 100MG CAPSULE PO SCH ×2 (08:30→17:09)
[2017-08-10] MEDS: MEMANTINE HCL 10MG TABLET PO SCH ×2 (08:30→22:00)
[2017-08-10] MEDS ORDERED: POTASSIUM CHLORIDE 20MEQ TABLET SR PO NR ×2 (10:15→16:00)
[2017-08-10] MEDS: ENOXAPARIN 40MG/0.4ML SYR SUBCUT SCH (11:31)
[2017-08-10 20:00] VITALS: BP 113/71
[2017-08-10] MEDS: POLYETHYLENE GLYCOL 3350 (17GM) 1 DOSE PACK PO SCH (22:00)
[2017-08-10] MEDS: ATORVASTATIN CALCIUM 20MG TABLET PO SCH (22:00)
[2017-08-11] MEDS: IPRATROPIUM/ALBUTEROL 0.5-3(2.5)MG/3ML NEB HHN SCH ×4 (02:00→21:28)
[2017-08-11] MEDS: CEPHALEXIN 500MG CAPSULE PO SCH ×4 (05:50→17:17)
[2017-08-11 07:37] LABS: BASOPHILS % 0.3 % (0.0-2.0); CARBON DIOXIDE 26 mEq/L (21-32); CHLORIDE 108 mEq/L (98-107); EOSINOPHILS % 0.8 % (0.0-5.0); HEMATOCRIT. 53.1 % (42.0-52.0); HEMOGLOBIN. 17.7 g/dL (14.0-18.0); MEAN CORPUSCULAR HEMOGLOBIN 29.7 pg (28.0-32.0); MEAN CORPUSCULAR VOLUME 89.2 fL (80.0-94.0); MONOCYTES % 6.9 % (2.0-8.0); RED BLOOD CELL COUNT 5.95 mill/uL (4.7-6.1); RED CELL DISTRIBUTION WIDTH 17.5 % (11.6-14.6)
[2017-08-11 08:00] VITALS: BP 136/85
[2017-08-11] MEDS: BISACODYL 10MG SUPP PR SCH (09:00)
[2017-08-11] MEDS ORDERED: PREDNISONE 20MG TABLET PO SCH (09:00)
[2017-08-11] MEDS: MEMANTINE HCL 10MG TABLET PO SCH ×2 (09:31→22:23)
[2017-08-11] MEDS: GUAIFENESIN 600MG ER TABLET PO SCH ×2 (09:31→22:23)
[2017-08-11] MEDS: DOCUSATE SODIUM 100MG CAPSULE PO SCH ×2 (09:32→17:17)
[2017-08-11] MEDS: SERTRALINE HCL 100MG TABLET PO SCH ×2 (09:32→17:17)
[2017-08-11] MEDS: CYANOCOBALAMIN 1000MCG TABLET PO SCH (09:32)
[2017-08-11] MEDS: AMLODIPINE 2.5MG TABLET PO SCH (09:32)
[2017-08-11] MEDS: BUPROPION HCL 150MG TABLET XL 24HR PO SCH (10:15)
[2017-08-11] MEDS: ENOXAPARIN 40MG/0.4ML SYR SUBCUT SCH (12:30)
[2017-08-11] MEDS ORDERED: LACTULOSE 20G/30ML UDC PO PRN (13:30)
[2017-08-11] MEDS: BUDESONIDE 0.5MG/2ML NEB HHN SCH ×2 (15:59→21:29)
[2017-08-11] MEDS: GUAIFENESIN/CODEINE 200-20MG/10ML UDC PO PRN (17:27)
[2017-08-11 20:00] VITALS: BP 125/72
[2017-08-11] MEDS: POLYETHYLENE GLYCOL 3350 (17GM) 1 DOSE PACK PO SCH (21:00)
[2017-08-11] MEDS: ATORVASTATIN CALCIUM 20MG TABLET PO SCH (22:23)
[2017-08-12] MEDS: IPRATROPIUM/ALBUTEROL 0.5-3(2.5)MG/3ML NEB HHN SCH ×4 (01:45→22:23)
[2017-08-12] MEDS: CEPHALEXIN 500MG CAPSULE PO SCH ×2 (04:20→06:00)
[2017-08-12 08:00] VITALS: BP 126/88
[2017-08-12] MEDS: BUDESONIDE 0.5MG/2ML NEB HHN SCH (08:55)
[2017-08-12] MEDS: BISACODYL 10MG SUPP PR SCH (09:00)
[2017-08-12] MEDS: DOCUSATE SODIUM 100MG CAPSULE PO SCH ×2 (09:00→17:00)
[2017-08-12 09:52] LABS: BG BASE EXCESS 2.6 mmol/L (-2.0-2.0); BG CARBOXYHEMOGLOBIN 0.4 % (0.5-1.5); BG DEOXYHEMOGLOBIN 8.2 % (0.0-5.0); BG HCO3 ACT 25.7 mmol/L (22.0-26.0); BG METHEMOGLOBIN 0.4 % (0.0-1.5); BG OXYGEN SATURATION 91.7 % (92.0-98.5); BG PCO2 35.6 mmHg (35.0-45.0); BG PH 7.476 (7.350-7.450); BG PO2 56.1 mmHg (75.0-100.0); BG SAMPLE SITE RIGHT RADIAL; BG TOTAL HEMOGLOBIN 18.3 g/dL (12.0-18.0); BG VENT MODE ROOM AIR
[2017-08-12] MEDS: MEMANTINE HCL 10MG TABLET PO SCH ×2 (09:57→22:27)
[2017-08-12] MEDS: SERTRALINE HCL 100MG TABLET PO SCH ×2 (09:57→17:17)
[2017-08-12] MEDS: BUPROPION HCL 150MG TABLET XL 24HR PO SCH (09:57)
[2017-08-12] MEDS: GUAIFENESIN 600MG ER TABLET PO SCH ×2 (09:58→22:27)
[2017-08-12] MEDS: CYANOCOBALAMIN 1000MCG TABLET PO SCH (09:58)
[2017-08-12] MEDS: AMLODIPINE 2.5MG TABLET PO SCH (09:59)
[2017-08-12] MEDS ORDERED: METHYLPREDNISOLONE SOD SUCC 125 MG/2 ML VIAL IV SCH (10:00)
[2017-08-12] MEDS: ENOXAPARIN 40MG/0.4ML SYR SUBCUT SCH (14:51)
[2017-08-12] MEDS: AMPICILLIN SOD/SULBACTAM NA 3 G in SODIUM CHLORIDE 0.9% 100 ML IV SCH ×2 (16:00→22:28)
[2017-08-12] MEDS: PREDNISONE 20MG TABLET PO SCH (17:17)
[2017-08-12 20:00] VITALS: BP 117/85
[2017-08-12] MEDS: ATORVASTATIN CALCIUM 20MG TABLET PO SCH (22:27)
[2017-08-12] MEDS: POLYETHYLENE GLYCOL 3350 (17GM) 1 DOSE PACK PO SCH (22:28)
[2017-08-13] MEDS: IPRATROPIUM/ALBUTEROL 0.5-3(2.5)MG/3ML NEB HHN SCH ×3 (02:40→21:24)
[2017-08-13] MEDS: AMPICILLIN SOD/SULBACTAM NA 3 G in SODIUM CHLORIDE 0.9% 100 ML IV SCH ×4 (03:59→21:53)
[2017-08-13 06:48] LABS: HEMATOCRIT. 49.7 % (42.0-52.0); HEMOGLOBIN. 16.2 g/dL (14.0-18.0); MEAN CORPUSCULAR HEMOGLOBIN 28.9 pg (28.0-32.0); MEAN CORPUSCULAR VOLUME 88.7 fL (80.0-94.0); PLATELET 158 x1000/uL (130-400); RED CELL DISTRIBUTION WIDTH 17.1 % (11.6-14.6)
[2017-08-13 07:44] LABS: CARBON DIOXIDE 29 mEq/L (21-32); CHLORIDE 109 mEq/L (98-107)
[2017-08-13 08:00] VITALS: BP 143/89
[2017-08-13] MEDS: BISACODYL 10MG SUPP PR SCH (09:00)
[2017-08-13] MEDS: PREDNISONE 20MG TABLET PO SCH ×2 (09:37→17:28)
[2017-08-13] MEDS: BUPROPION HCL 150MG TABLET XL 24HR PO SCH (09:38)
[2017-08-13] MEDS: MEMANTINE HCL 10MG TABLET PO SCH ×2 (09:39→21:53)
[2017-08-13] MEDS: GUAIFENESIN 600MG ER TABLET PO SCH ×2 (09:39→21:53)
[2017-08-13] MEDS: CYANOCOBALAMIN 1000MCG TABLET PO SCH (09:39)
[2017-08-13] MEDS: DOCUSATE SODIUM 100MG CAPSULE PO SCH ×2 (09:39→17:28)
[2017-08-13] MEDS: AMLODIPINE 2.5MG TABLET PO SCH (09:39)
[2017-08-13] MEDS: SERTRALINE HCL 100MG TABLET PO SCH ×2 (09:42→17:28)
[2017-08-13 10:44] LABS: PLATELET ESTIMATE NORMAL
[2017-08-13] MEDS: ENOXAPARIN 40MG/0.4ML SYR SUBCUT SCH (12:08)
[2017-08-13 20:00] VITALS: BP 146/65
[2017-08-13] MEDS: POLYETHYLENE GLYCOL 3350 (17GM) 1 DOSE PACK PO SCH (21:00)
[2017-08-13] MEDS: ATORVASTATIN CALCIUM 20MG TABLET PO SCH (21:53)
[2017-08-13] MEDS: GUAIFENESIN/CODEINE 200-20MG/10ML UDC PO PRN (22:00)
[2017-08-14] MEDS: IPRATROPIUM/ALBUTEROL 0.5-3(2.5)MG/3ML NEB HHN SCH ×4 (01:45→20:52)
[2017-08-14] MEDS: AMPICILLIN SOD/SULBACTAM NA 3 G in SODIUM CHLORIDE 0.9% 100 ML IV SCH ×4 (04:59→21:23)
[2017-08-14 07:57] VITALS: BP 141/101
[2017-08-14 08:25] VITALS: BP 145/78
[2017-08-14] MEDS: DOCUSATE SODIUM 100MG CAPSULE PO SCH ×2 (08:39→17:10)
[2017-08-14] MEDS: BUPROPION HCL 150MG TABLET XL 24HR PO SCH (08:39)
[2017-08-14] MEDS: PREDNISONE 20MG TABLET PO SCH ×2 (08:39→17:10)
[2017-08-14] MEDS: CYANOCOBALAMIN 1000MCG TABLET PO SCH (08:39)
[2017-08-14] MEDS: MEMANTINE HCL 10MG TABLET PO SCH ×2 (08:40→21:22)
[2017-08-14] MEDS: SERTRALINE HCL 100MG TABLET PO SCH ×2 (08:40→17:10)
[2017-08-14] MEDS: AMLODIPINE 2.5MG TABLET PO SCH (08:40)
[2017-08-14] MEDS: GUAIFENESIN 600MG ER TABLET PO SCH ×2 (08:40→21:22)
[2017-08-14] MEDS: BISACODYL 10MG SUPP PR SCH (08:41)
[2017-08-14] MEDS: ENOXAPARIN 40MG/0.4ML SYR SUBCUT SCH (11:22)
[2017-08-14 20:00] VITALS: BP 124/88
[2017-08-14] MEDS: POLYETHYLENE GLYCOL 3350 (17GM) 1 DOSE PACK PO SCH (21:00)
[2017-08-14] MEDS: ATORVASTATIN CALCIUM 20MG TABLET PO SCH (21:22)
[2017-08-15] MEDS: IPRATROPIUM/ALBUTEROL 0.5-3(2.5)MG/3ML NEB HHN SCH ×4 (00:56→21:31)
[2017-08-15] MEDS: ACETAMINOPHEN 325MG TABLET PO PRN ×2 (02:44→21:29)
[2017-08-15] MEDS: GUAIFENESIN/CODEINE 200-20MG/10ML UDC PO PRN ×3 (03:49→15:07)
[2017-08-15] MEDS: AMPICILLIN SOD/SULBACTAM NA 3 G in SODIUM CHLORIDE 0.9% 100 ML IV SCH ×4 (03:49→21:34)
[2017-08-15 08:00] VITALS: BP 160/100
[2017-08-15] MEDS: BISACODYL 10MG SUPP PR SCH (09:00)
[2017-08-15 09:50] VITALS: BP 136/86
[2017-08-15] MEDS: BUPROPION HCL 150MG TABLET XL 24HR PO SCH (09:52)
[2017-08-15] MEDS: AMLODIPINE 2.5MG TABLET PO SCH (09:52)
[2017-08-15] MEDS: DOCUSATE SODIUM 100MG CAPSULE PO SCH ×2 (09:52→17:58)
[2017-08-15] MEDS: MEMANTINE HCL 10MG TABLET PO SCH ×2 (09:52→20:22)
[2017-08-15] MEDS: CYANOCOBALAMIN 1000MCG TABLET PO SCH (09:52)
[2017-08-15] MEDS: GUAIFENESIN 600MG ER TABLET PO SCH ×2 (09:52→20:22)
[2017-08-15] MEDS: SERTRALINE HCL 100MG TABLET PO SCH ×2 (09:53→17:58)
[2017-08-15] MEDS: PREDNISONE 20MG TABLET PO SCH (09:53)
[2017-08-15] MEDS: ENOXAPARIN 40MG/0.4ML SYR SUBCUT SCH (11:02)
[2017-08-15 13:28] LABS: BG CARBOXYHEMOGLOBIN 0.4 % (0.5-1.5); BG DEOXYHEMOGLOBIN 4.1 % (0.0-5.0); BG HCO3 ACT 28.4 mmol/L (22.0-26.0); BG METHEMOGLOBIN 0.2 % (0.0-1.5); BG OXYGEN SATURATION 95.9 % (92.0-98.5); BG OXYHEMOGLOBIN 95.3 % (94.0-97.0); BG PCO2 45.9 mmHg (35.0-45.0); BG PO2 79.6 mmHg (75.0-100.0); BG SAMPLE SITE RIGHT RADIAL; BG TOTAL HEMOGLOBIN 16.6 g/dL (12.0-18.0); BG VENT MODE NASAL CANNULA
[2017-08-15] MEDS: DEXT 5%/0.9% NACL 1,000 ML IV SCH (15:07)
[2017-08-15 20:04] VITALS: BP 123/90
[2017-08-15] MEDS: ATORVASTATIN CALCIUM 20MG TABLET PO SCH (20:22)
[2017-08-15] MEDS: POLYETHYLENE GLYCOL 3350 (17GM) 1 DOSE PACK PO SCH (20:22)
[2017-08-16] MEDS: AMPICILLIN SOD/SULBACTAM NA 3 G in SODIUM CHLORIDE 0.9% 100 ML IV SCH ×4 (03:17→21:32)
[2017-08-16] MEDS: IPRATROPIUM/ALBUTEROL 0.5-3(2.5)MG/3ML NEB HHN SCH ×5 (04:43→20:01)
[2017-08-16] MEDS: GUAIFENESIN/CODEINE 200-20MG/10ML UDC PO PRN (05:01)
[2017-08-16 07:34] LABS: BASOPHILS % 0.4 % (0.0-2.0); EOSINOPHILS % 0.2 % (0.0-5.0); HEMATOCRIT. 48.6 % (42.0-52.0); HEMOGLOBIN. 15.8 g/dL (14.0-18.0); LYMPHOCYTES % 12.3 % (20.0-50.0); MEAN CORPUSCULAR HEMOGLOBIN 28.9 pg (28.0-32.0); MEAN CORPUSCULAR VOLUME 88.9 fL (80.0-94.0); MEAN PLATELET VOLUME 8.7 fl (7.4-10.4); MONOCYTES % 7.8 % (2.0-8.0); NEUTROPHILS % 79.3 % (40.0-76.0); PLATELET 140 x1000/uL (130-400); RED BLOOD CELL COUNT 5.47 mill/uL (4.7-6.1); RED CELL DISTRIBUTION WIDTH 17.3 % (11.6-14.6)
[2017-08-16 08:00] VITALS: BP 137/91
[2017-08-16] MEDS: SERTRALINE HCL 100MG TABLET PO SCH ×2 (08:35→16:40)
[2017-08-16] MEDS: GUAIFENESIN 600MG ER TABLET PO SCH ×2 (08:35→20:41)
[2017-08-16] MEDS: MEMANTINE HCL 10MG TABLET PO SCH ×2 (08:36→20:41)
[2017-08-16] MEDS: BISACODYL 10MG SUPP PR SCH (08:36)
[2017-08-16] MEDS: BUPROPION HCL 150MG TABLET XL 24HR PO SCH (08:36)
[2017-08-16] MEDS: CYANOCOBALAMIN 1000MCG TABLET PO SCH (08:36)
[2017-08-16] MEDS: AMLODIPINE 2.5MG TABLET PO SCH (08:36)
[2017-08-16] MEDS: DOCUSATE SODIUM 100MG CAPSULE PO SCH ×2 (08:36→16:40)
[2017-08-16] MEDS: ERGOCALCIFEROL 50000UNITS CAPSULE PO SCH (08:36)
[2017-08-16] MEDS: DEXT 5%/0.9% NACL 1,000 ML IV SCH (08:37)
[2017-08-16 08:38] LABS: CARBON DIOXIDE 29 mEq/L (21-32); CHLORIDE 107 mEq/L (98-107)
[2017-08-16] MEDS ORDERED: PREDNISONE 20MG TABLET PO SCH (09:00)
[2017-08-16] MEDS ORDERED: POTASSIUM CHLORIDE 20MEQ TABLET SR PO NR (12:30)
[2017-08-16] MEDS: ENOXAPARIN 40MG/0.4ML SYR SUBCUT SCH (12:53)
[2017-08-16 20:00] VITALS: BP 143/96
[2017-08-16] MEDS: ATORVASTATIN CALCIUM 20MG TABLET PO SCH (20:41)
[2017-08-16] MEDS: POLYETHYLENE GLYCOL 3350 (17GM) 1 DOSE PACK PO SCH (20:42)
[2017-08-17] MEDS: IPRATROPIUM/ALBUTEROL 0.5-3(2.5)MG/3ML NEB HHN SCH ×6 (02:03→23:26)
[2017-08-17] MEDS: AMPICILLIN SOD/SULBACTAM NA 3 G in SODIUM CHLORIDE 0.9% 100 ML IV SCH ×2 (03:57→09:54)
[2017-08-17] MEDS: GUAIFENESIN/CODEINE 200-20MG/10ML UDC PO PRN (03:57)
[2017-08-17 08:00] VITALS: BP 161/98
[2017-08-17] MEDS: GUAIFENESIN 600MG ER TABLET PO SCH ×2 (09:39→20:59)
[2017-08-17] MEDS: DOCUSATE SODIUM 100MG CAPSULE PO SCH ×2 (09:39→17:41)
[2017-08-17] MEDS: MEMANTINE HCL 10MG TABLET PO SCH ×2 (09:39→20:59)
[2017-08-17] MEDS: BISACODYL 10MG SUPP PR SCH (09:40)
[2017-08-17] MEDS: AMLODIPINE 5MG TABLET PO SCH (09:40)
[2017-08-17] MEDS: CYANOCOBALAMIN 1000MCG TABLET PO SCH (09:40)
[2017-08-17] MEDS: BUPROPION HCL 150MG TABLET XL 24HR PO SCH (09:40)
[2017-08-17] MEDS: SERTRALINE HCL 100MG TABLET PO SCH ×2 (09:40→17:41)
[2017-08-17] MEDS: ENOXAPARIN 40MG/0.4ML SYR SUBCUT SCH (11:54)
[2017-08-17 19:24] LABS: BASOPHILS % 0.5 % (0.0-2.0); EOSINOPHILS % 0.7 % (0.0-5.0); HEMATOCRIT. 50.8 % (42.0-52.0); HEMOGLOBIN. 16.6 g/dL (14.0-18.0); MEAN CORPUSCULAR HEMOGLOBIN 28.7 pg (28.0-32.0); MEAN CORPUSCULAR VOLUME 87.9 fL (80.0-94.0); MONOCYTES % 6.5 % (2.0-8.0); NEUTROPHILS % 75.3 % (40.0-76.0); PLATELET 181 x1000/uL (130-400); RED BLOOD CELL COUNT 5.78 mill/uL (4.7-6.1); RED CELL DISTRIBUTION WIDTH 17.1 % (11.6-14.6)
[2017-08-17 19:46] LABS: CARBON DIOXIDE 29 mEq/L (21-32); CHLORIDE 103 mEq/L (98-107)
[2017-08-17 19:48] LABS: PHOSPHORUS 2.1 mg/dL (2.5-4.9)
[2017-08-17 20:00] VITALS: BP 114/69
[2017-08-17] MEDS: ATORVASTATIN CALCIUM 20MG TABLET PO SCH (20:59)
[2017-08-17] MEDS: POLYETHYLENE GLYCOL 3350 (17GM) 1 DOSE PACK PO SCH (20:59)
[2017-08-17] MEDS ORDERED: POTASSIUM PHOS,M-BASIC-D-BASIC 20 MMOL in SODIUM CHLORIDE 0.9% 250 ML IV NR (21:00)
[2017-08-17] MEDS: ACETAMINOPHEN 325MG TABLET PO PRN (21:49)
[2017-08-18] MEDS: GUAIFENESIN/CODEINE 200-20MG/10ML UDC PO PRN (03:33)
[2017-08-18] MEDS: IPRATROPIUM/ALBUTEROL 0.5-3(2.5)MG/3ML NEB HHN SCH ×3 (04:34→12:24)
[2017-08-18 07:13] LABS: BASOPHILS % 0.3 % (0.0-2.0); EOSINOPHILS % 0.9 % (0.0-5.0); HEMATOCRIT. 48.3 % (42.0-52.0); LYMPHOCYTES % 21.3 % (20.0-50.0); MEAN CORPUSCULAR HEMOGLOBIN 29.2 pg (28.0-32.0); MEAN CORPUSCULAR VOLUME 88.1 fL (80.0-94.0); MONOCYTES % 7.4 % (2.0-8.0); NEUTROPHILS % 70.1 % (40.0-76.0); PLATELET 159 x1000/uL (130-400); RED BLOOD CELL COUNT 5.49 mill/uL (4.7-6.1)
[2017-08-18 08:00] VITALS: BP 152/102
[2017-08-18] MEDS: BISACODYL 10MG SUPP PR SCH (09:00)
[2017-08-18 09:02] LABS: CARBON DIOXIDE 29 mEq/L (21-32); CHLORIDE 105 mEq/L (98-107)
[2017-08-18] MEDS: DOCUSATE SODIUM 100MG CAPSULE PO SCH (09:12)
[2017-08-18] MEDS: CYANOCOBALAMIN 1000MCG TABLET PO SCH (09:30)
[2017-08-18] MEDS: BUPROPION HCL 150MG TABLET XL 24HR PO SCH (09:30)
[2017-08-18] MEDS: AMLODIPINE 5MG TABLET PO SCH (09:31)
[2017-08-18] MEDS: MEMANTINE HCL 10MG TABLET PO SCH (09:31)
[2017-08-18] MEDS: SERTRALINE HCL 100MG TABLET PO SCH (09:31)
[2017-08-18] MEDS: GUAIFENESIN 600MG ER TABLET PO SCH (09:31)
[2017-08-18 13:10] VITALS: BP 152/92
== END 2017-08-18 13:10 | disposition home health service (06) | DRG 551 ==
PROVIDERS: ADMIT Physical Medicine & Rehabilitation Spinal Cord Injury Medicine; ATTEND Internal Medicine Nephrology
DX: M48.02 Spinal stenosis, cervical region (principal); G82.50 Quadriplegia, unspecified; A41.59 Other Gram-negative sepsis; J96.01 Acute respiratory failure with hypoxia; J15.0 Pneumonia due to Klebsiella pneumoniae; Z93.0 Tracheostomy status; F33.2 Major depressive disorder, recurrent severe without psychotic features; L03.115 Cellulitis of right lower limb; J44.0 Chronic obstructive pulmonary disease with (acute) lower respiratory infection; L03.116 Cellulitis of left lower limb; I13.10 Hypertensive heart and chronic kidney disease without heart failure, with stage 1 through stage 4 chronic kidney disease, or unspecified chronic kidney disease; G62.9 Polyneuropathy, unspecified; D75.1 Secondary polycythemia; N40.0 Benign prostatic hyperplasia without lower urinary tract symptoms; M48.061 Spinal stenosis, lumbar region without neurogenic claudication; G89.29 Other chronic pain; E78.00 Pure hypercholesterolemia, unspecified; R26.9 Unspecified abnormalities of gait and mobility; E53.8 Deficiency of other specified B group vitamins; N18.9 Chronic kidney disease, unspecified; M17.0 Bilateral primary osteoarthritis of knee; F03.90 Unspecified dementia, unspecified severity, without behavioral disturbance, psychotic disturbance, mood disturbance, and anxiety; E87.6 Hypokalemia; E78.5 Hyperlipidemia, unspecified; E55.9 Vitamin D deficiency, unspecified; E11.22 Type 2 diabetes mellitus with diabetic chronic kidney disease; Z96.643 Presence of artificial hip joint, bilateral; Z96.653 Presence of artificial knee joint, bilateral; Z87.891 Personal history of nicotine dependence; Z98.2 Presence of cerebrospinal fluid drainage device; Z86.74 Personal history of sudden cardiac arrest; Z90.5 Acquired absence of kidney; Z90.79 Acquired absence of other genital organ(s); Z82.49 Family history of ischemic heart disease and other diseases of the circulatory system; Z98.1 Arthrodesis status
CPT/HCPCS: 36415; 36600; 71010; 71250; 78582; 80048; 80053; 80061; 81001; 82164; 82270; 82306; 82375; 82550; 82553; 82607; 82728; 82746; 82805; 83036; 83520; 83540; 83550; 83735; 84100; 84132; 84153; 84443; 84484; 84550; 84630; 85025; 85651; 86038; 86140; 86256; 86431; 87040; 87070; 87077; 87086; 87186; 92523; 92610; 93005; 93306; 93970; 94640; 94664; 97110; 97112; 97116; 97163; 97167; 97530; 97532; 97535; 97542; A6261; A9558; C1893; J0295; J1650; J2930; J3480; J3490; J7040; J7042; J7050; J7060; J7131; J7512; J7608; J7620; J7626; Q0162